=== PATIENT | male | born 1970 | race Caucasian/White ===

== ENCOUNTER 2019-12-29 02:21 | Observation (INO) ==
[2019-12-29 03:14] LABS: Basophils % 0.5 %; Eosinophils # 0.2 K/mcL (0.0-0.6); Hematocrit 43.7 % (37.5-50.1); Hemoglobin 14.3 g/dL (12.9-16.9); Immature Granulocytes % 0.3 % (0-4); Lymphocytes # 2.2 K/mcL (0.6-4.6); Lymphocytes % 25.3 %; Mean Corpuscular HGB Conc 32.7 g/dL (31.6-35.5); Mean Corpuscular Hemoglobin 28.8 pg (28.0-33.3); Mean Corpuscular Volume 87.9 fL (83.0-100.0); Mean Platelet Volume 10.2 fL (9.4-12.4); Monocytes # 0.8 K/mcL (0.0-1.3); Monocytes % 8.6 %; Neutrophils # 5.5 K/mcL (1.6-8.9); Platelet Count 234 K/mcL (140-400); Red Blood Count 4.97 M/mcL (4.19-5.50); Red Cell Distribution Width 12.5 % (11.5-14.5); Segmented Neutrophils % 63.3 %; White Blood Count 8.7 K/mcL (4.3-11.1)
[2019-12-29] MEDS ORDERED: 0.9 % Sodium Chloride 1,000 ML IV ONE (03:19)
[2019-12-29 03:30] LABS: BUN/Creatinine Ratio 17 (6-26); Blood Urea Nitrogen 14 mg/dL (6-20); Calcium 9.1 mg/dL (8.6-10.3); Carbon Dioxide 23 mEq/L (23-29); Chloride 101 mEq/L (98-107); Glucose 348 mg/dL (70-105); Osmolality,Calculated 292 (280-300); Potassium 3.9 mEq/L (3.5-5.1); Sodium 134 mEq/L (136-145); eGFR For African Americans > 60 (> 60); eGFR For Non-African Americans > 60 (> 60)
[2019-12-29] MEDS ORDERED: Ampicillin/Sulbactam 1,500 MG in 0.9 % Sodium Chloride Mini Bag 100 ML IVPB ONE (03:47)
[2019-12-29] MEDS ORDERED: Piperacillin/Tazobactam 3.375 GM in 0.9 % Sodium Chloride Mini Bag 100 ML IVPB ONE (03:57)
[2019-12-29] MEDS ORDERED: Ketorolac 30 MG/ML VIAL IVP ONE (04:01)
[2019-12-29] MEDS ORDERED: Naloxone 0.4 MG/ML INJ IVP PRN (04:36)
[2019-12-29] MEDS ORDERED: Mag Hydrox/Al Hydrox/Simeth 30 ML UDC PO PRN (04:36)
[2019-12-29] MEDS ORDERED: Acetaminophen 325 MG TABLET PO PRN (04:36)
[2019-12-29] MEDS ORDERED: *HR* Promethazine 25 MG/ML VIAL IVP PRN (04:36)
[2019-12-29] MEDS: *HR* OxyCODONE Immed Rel 5 MG TABLET PO PRN ×4 (05:13→23:17)
[2019-12-29] MEDS ORDERED: *HR* Labetalol 20 MG/4 ML SYRINGE IVP STA (05:53)
[2019-12-29] MEDS: lisinopriL 10 MG TABLET PO SCH ×2 (06:01→07:41)
[2019-12-29] MEDS: Vancomycin 2,000 MG/520 ML IV.SOLN IVPB SCH ×2 (07:40→19:24)
[2019-12-29] MEDS: *HR* Heparin 5,000 UNIT/ML VIAL SQ SCH ×2 (07:40→16:18)
[2019-12-29] MEDS: Insulin LISPRO 300 UNITS/3 ML VIAL SQ SCH ×3 (07:53→16:17)
[2019-12-29] MEDS: Insulin DETEMIR 100 UNIT/ML X5UNITS SQ SCH (07:53)
[2019-12-29 08:06] LABS: Chol/HDL Ratio 6.5 (0-4.9); Cholesterol 266 mg/dL (< 200); HDL Cholesterol 41 mg/dL (40-59); LDL Cholesterol,Calculated 154 mg/dL (0-99); Triglycerides 353 mg/dL (< 150)
[2019-12-29 08:44] LABS: Estimated Average Glucose 332 mg/dl; Hemoglobin A1C 13.2 %
[2019-12-29] MEDS: Ketorolac 15 MG/ML VIAL IVP PRN ×2 (10:24→16:18)
[2019-12-29] MEDS: Piperacillin/Tazobactam 3.375 GM in 0.9 % Sodium Chloride Mini Bag 100 ML IVPB SCH ×2 (11:53→19:24)
[2019-12-30] MEDS: *HR* Labetalol 20 MG/4 ML SYRINGE IVP PRN ×2 (03:52→13:19)
[2019-12-30] MEDS: Piperacillin/Tazobactam 3.375 GM in 0.9 % Sodium Chloride Mini Bag 100 ML IVPB SCH ×3 (03:54→20:42)
[2019-12-30] MEDS: Vancomycin 2,000 MG/520 ML IV.SOLN IVPB SCH ×2 (04:46→16:35)
[2019-12-30] MEDS: *HR* OxyCODONE Immed Rel 5 MG TABLET PO PRN ×3 (04:47→18:33)
[2019-12-30] MEDS: *HR* Heparin 5,000 UNIT/ML VIAL SQ SCH ×2 (04:48→16:34)
[2019-12-30] MEDS: lisinopriL 10 MG TABLET PO SCH (05:44)
[2019-12-30 07:16] LABS: Basophils # 0.1 K/mcL (0.0-0.2); Basophils % 0.7 %; Eosinophils # 0.2 K/mcL (0.0-0.6); Eosinophils % 2.9 %; Hematocrit 39.4 % (37.5-50.1); Hemoglobin 12.9 g/dL (12.9-16.9); Immature Granulocytes % 0.3 % (0-4); Lymphocytes # 1.8 K/mcL (0.6-4.6); Mean Corpuscular HGB Conc 32.7 g/dL (31.6-35.5); Mean Corpuscular Hemoglobin 29.1 pg (28.0-33.3); Mean Corpuscular Volume 88.7 fL (83.0-100.0); Mean Platelet Volume 10.2 fL (9.4-12.4); Monocytes # 0.5 K/mcL (0.0-1.3); Monocytes % 7.1 %; Platelet Count 232 K/mcL (140-400); Red Blood Count 4.44 M/mcL (4.19-5.50); Red Cell Distribution Width 12.7 % (11.5-14.5); White Blood Count 7.6 K/mcL (4.3-11.1)
[2019-12-30 08:43] LABS: Alanine Aminotransferase 26 Units/L (7-52); Albumin 3.9 g/dL (3.5-5.7); Albumin/Globulin Ratio 1.3 (1.1-2.2); Alkaline Phosphatase 100 Units/L (34-104); Aspartate Amino Transferase 18 Units/L (13-39); BUN/Creatinine Ratio 16 (6-26); Bilirubin,Total 0.9 mg/dL (0.3-1.0); Blood Urea Nitrogen 12 mg/dL (6-20); Carbon Dioxide 22 mEq/L (23-29); Chloride 104 mEq/L (98-107); Glucose 271 mg/dL (70-105); Magnesium 1.8 mg/dL (1.6-2.6); Osmolality,Calculated 291 (280-300); Phosphorous 2.8 mg/dL (2.7-4.5); Potassium 3.8 mEq/L (3.5-5.1); Sodium 136 mEq/L (136-145); Total Protein 6.9 g/dL (6.4-8.9); eGFR For African Americans > 60 (> 60); eGFR For Non-African Americans > 60 (> 60)
[2019-12-30] MEDS ORDERED: Morphine Sulfate 2 MG/ML SYRINGE IVP ONE (08:51)
[2019-12-30] MEDS: amLODIPine 5 MG TABLET PO SCH (09:01)
[2019-12-30] MEDS: Insulin LISPRO 300 UNITS/3 ML VIAL SQ SCH ×3 (09:02→16:34)
[2019-12-30] MEDS: Insulin DETEMIR 100 UNIT/ML X5UNITS SQ SCH (09:02)
[2019-12-30] MEDS ORDERED: Aminoglycoside Consult 1 EACH MC ONE (09:55)
[2019-12-30] MEDS: Ciprofloxacin/Dex *EAR* Susp 7.5 ML BOTTLE LEFT EAR SCH ×2 (10:27→20:43)
[2019-12-30] MEDS: Gentamicin Oint 15 GM TUBE TP SCH ×2 (13:19→20:43)
[2019-12-30] MEDS: cloNIDine HCL 0.1 MG TABLET PO SCH ×2 (16:34→20:42)
[2019-12-31] MEDS: Piperacillin/Tazobactam 3.375 GM in 0.9 % Sodium Chloride Mini Bag 100 ML IVPB SCH (05:48)
[2019-12-31] MEDS: Vancomycin 2,000 MG/520 ML IV.SOLN IVPB SCH (05:55)
[2019-12-31] MEDS: *HR* Heparin 5,000 UNIT/ML VIAL SQ SCH (05:58)
[2019-12-31 07:02] VITALS: BP 166/105
[2019-12-31] MEDS: cloNIDine HCL 0.1 MG TABLET PO SCH (08:04)
[2019-12-31] MEDS: amLODIPine 5 MG TABLET PO SCH (08:04)
[2019-12-31] MEDS: Ciprofloxacin/Dex *EAR* Susp 7.5 ML BOTTLE LEFT EAR SCH (08:05)
[2019-12-31] MEDS: Gentamicin Oint 15 GM TUBE TP SCH (08:05)
[2019-12-31] MEDS: Insulin LISPRO 300 UNITS/3 ML VIAL SQ SCH (08:05)
[2019-12-31] MEDS: *HR* OxyCODONE Immed Rel 5 MG TABLET PO PRN (08:12)
[2019-12-31] MEDS ORDERED: lisinopriL 20 MG TABLET PO SCH (09:00)
== END 2019-12-31 09:56 | disposition home or self-care (01) ==
LOC: CDU 02:21 → EMEROOARM 02:21 → SUATTDRO 04:44 → CDU 05:06 → 3BNU 12:42
PROVIDERS: ADMIT Internal Medicine; ATTEND Internal Medicine